=== PATIENT | male | born 1970 | race Hispanic/Latino ===

== ENCOUNTER 2020-02-29 01:26 | Observation (INO) | payer BC, OTHER ==
[2020-02-29 01:58] LABS: Absolute Lymphocytes (CBC) 2.4 K/uL (0.7-4.9); Basophils % 1.4 % (0-1.3); Hematocrit 47.2 % (39.6-49.0); Lymphocytes % 33.5 % (15.3-44.8); MPV 8.2 fL (7.6-11.3); RBC Red Blood Cell Count 5.42 M/uL (4.33-5.43)
[2020-02-29 02:02] LABS: Protime INR 0.87
[2020-02-29 02:21] LABS: ALT/SGPT 46 U/L (12-78); AST/SGOT 19 U/L (15-37); Albumin 3.8 g/dL (3.4-5.0); Alkaline Phosphatase 83 U/L (45-117); BUN Blood Urea Nitrogen 14 mg/dL (7-18); Bicarbonate 31 mmol/L (21-32); Bilirubin Direct < 0.1 mg/dL (0-0.2); Bilirubin Total 0.3 mg/dL (0.2-1.0); Glucose Level 134 mg/dL (74-106); Magnesium 2.1 mg/dL (1.8-2.4); NT PRO-BNP 10 pg/mL (<125); Potassium 3.5 mmol/L (3.5-5.1); Protein, Total 7.1 g/dL (6.4-8.2); Sodium Level 143 mmol/L (136-145); Troponin (Emerg Dept Use Only) < 0.02 ng/mL (0.0-0.045)
--- NOTE | 2020-02-29 03:03 | ER ---
Nurse's Notes [facility] – [place], [place] Name: Ori Lucia Age: 49 yrs Sex: Male : 1970 Arrival Date: 02/29/2020 Time: 01:27 Bed 4 Private MD: Diagnosis: Other chest pain Presentation: 02/28 01:35 Chief complaint: Patient states: Chest pain x 2 days on and off, "feels like something lp1 is sitting on chest". Coronavirus screen: Proceed with normal triage. Ebola Screen: No symptoms or risks identified at this time. Initial Sepsis Screen: Does the patient meet any 2 criteria?. Onset of symptoms was February 29, 2020. 01:35 Method Of Arrival: Ambulatory lp1 01:35 Acuity: YU 3 lp1 01:59 Initial Sepsis Screen: Does the patient have a suspected source of infection? No. ea Patient's initial sepsis screen is negative. Risk Assessment: Do you want to hurt yourself or someone else? Patient reports no desire to harm self or others. Historical: - Allergies: 01:37 No Known Allergies; lp1 - Home Meds: 01:37 None [Active]; lp1 - PMHx: 01:37 None; lp1 - PSHx: 01:37 None; lp1 - Immunization history:: Adult Immunizations up to date. - Social history:: Smoking status: Patient denies any tobacco usage or history of. Screenin:37 Abuse screen: Denies threats or abuse. Denies injuries from another. Nutritional lp1 screening: No deficits noted. Tuberculosis screening: No symptoms or risk factors identified. Fall Risk None identified. Assessment: 01:40 General: Appears uncomfortable, Behavior is calm, cooperative, appropriate for age. ea Pain: Complains of pain in chest. Neuro: Level of Consciousness is awake, alert, obeys commands, Oriented to person, place, time, situation. Cardiovascular: Patient's skin is warm and dry. Respiratory: Airway is patent Respiratory effort is even, unlabored, Respiratory pattern is regular, symmetrical. Derm: Skin is pink, warm \\T\\ dry. 01:40 Pain: Pain radiates to right arm and left arm Pain Quality of pain is described as rr5 aching, tingling, Pain began gradually, 2-3 days ago. Is intermittent. 01:40 Musculoskeletal: Circulation, motion, and sensation intact. Capillary refill < 3 rr5 seconds. 02:48 Reassessment: Patient and/or family updated on plan of care and expected duration. Pain ea level reassessed. Patient is alert, oriented x 3, equal unlabored respirations, skin warm/dry/pink. Patient states feeling better. 03:32 Reassessment: Patient and/or family updated on plan of care and expected duration. Pain ea level reassessed. Patient is alert, oriented x 3, equal unlabored respirations, skin warm/dry/pink. Hospitalist at bedside updating pt on plan of care. 04:01 Reassessment: Patient and/or family updated on plan of care and expected duration. Pain ea level reassessed. Patient is alert, oriented x 3, equal unlabored respirations, skin warm/dry/pink. Vital Signs: 01:38 Weight 113.4 kg (R); Height 5 ft. 11 in. (180.34 cm); Pain 7/10; lp1 01:59 BP 148 / 87; Pulse 55; Resp 18; Temp 98; Pulse Ox 98% on R/A; ea 02:48 BP 140 / 88; Pulse 60; Resp 18; Pulse Ox 98% on R/A; ea 03:00 BP 130 / 61; Pulse 56; Resp 18; Pulse Ox 99% on R/A; ea 04:05 BP 141 / 74; Pulse 60; Resp 18; Pulse Ox 99% on R/A; ea 01:38 Body Mass Index 34.87 (113.40 kg, 180.34 cm) lp1 ED Course: 01:27 Patient arrived in ED. ds1 01:30 Chris Mcdermott MD is Attending Physician. tw4 01:37 Triage completed. lp1 01:37 Arm band placed on. lp1 01:43 EKG done, by ED staff, reviewed by Chris Mcdermott MD. ds4 01:47 XRAY Chest (1 view) In Process Unspecified. EDMS 01:57 Shweta Guerra, NICK is Primary Nurse. ea 01:58 Patient has correct armband on for positive identification. Placed in gown. Bed in low ea position. Call light in reach. campus monitor on. Pulse ox on. NIBP on. 01:59 Patient maintains SpO2 saturation greater than 95% on room air. ea 02:00 Inserted saline lock: 20 gauge in right antecubital area, using aseptic technique. rr5 ,using aseptic technique. inserted by shweta Blood collected. 02:59 Atilio Reynolds is Hospitalizing Provider. tw4 03:31 CT Chest For PE Angio In Process Unspecified. EDMS 04:02 No provider procedures requiring assistance completed. Patient admitted, IV remains in ea place. Administered Medications: No medications were administered Outcome: 03:02 Decision to Hospitalize by Provider. tw4 04:02 Instructed on the need for admit, Demonstrated understanding of instructions. ea 04:40 Admitted to Med/surg accompanied by tech, via wheelchair, room 221, with chart, Report rr5 called to [facility] 04:40 Condition: stable 04:50 Patient left the ED. rr5 Signatures: Dispatcher [employer] EDGA Melissa Henry ds1 Tawanna Rivers, RN RN lp1 Kb Seth ds4 Shweta Guerra RN RN ea Wadley, Terrence, MD MD tw4 Walter Patiño, RN RN rr5
--- NOTE | 2020-02-29 03:03 | EDPHYS ---
Physician Documentation [facility] Name: Ori Lucia Age: 49 yrs Sex: Male : 1970 Arrival Date: 02/29/2020 Time: 01:27 Bed 4 Private MD: ED Physician Chris Mcdermott HPI: 02/28 03:16 This 49 yrs old Male presents to ER via Ambulatory with complaints of Chest tw4 Pain, Tingling in Arms. 03:16 The patient or guardian reports chest pain that is located primarily in the anterior tw4 chest wall. Onset: yesterday. The pain does not radiate. Associated signs and symptoms: The patient has no apparent associated signs or symptoms. The chest pain is described as a heaviness. Duration: The patient or guardian reports a single episode. Modifying factors: The symptoms are alleviated by nothing. the symptoms are aggravated by nothing. Severity of pain: At its worst the pain was moderate in the emergency department the pain is unchanged. Historical: - Allergies: 01:37 No Known Allergies; lp1 - Home Meds: 01:37 None [Active]; lp1 - PMHx: 01:37 None; lp1 - PSHx: 01:37 None; lp1 - Immunization history:: Adult Immunizations up to date. - Social history:: Smoking status: Patient denies any tobacco usage or history of. ROS: 03:16 Constitutional: Negative for fever, chills, and weight loss, Eyes: Negative for injury, tw4 pain, redness, and discharge, Respiratory: Negative for shortness of breath, cough, wheezing, and pleuritic chest pain, Abdomen/GI: Negative for abdominal pain, nausea, vomiting, diarrhea, and constipation, Back: Negative for injury and pain, Skin: Negative for injury, rash, and discoloration, Neuro: Negative for headache, weakness, numbness, tingling, and seizure. 03:16 Cardiovascular: Positive for chest pain, Negative for edema, orthopnea, palpitations, paroxysmal nocturnal dyspnea. Exam: 03:16 Constitutional: This is a well developed, well nourished patient who is awake, alert, tw4 and in no acute distress. Head/Face: Normocephalic, atraumatic. Chest/axilla: Normal chest wall appearance and motion. Nontender with no deformity. No lesions are appreciated. Cardiovascular: Regular rate and rhythm with a normal S1 and S2. No gallops, murmurs, or rubs. Normal PMI, no JVD. No pulse deficits. Respiratory: Lungs have equal breath sounds bilaterally, clear to auscultation and percussion. No rales, rhonchi or wheezes noted. No increased work of breathing, no retractions or nasal flaring. Abdomen/GI: Soft, non-tender, with normal bowel sounds. No distension or tympany. No guarding or rebound. No evidence of tenderness throughout. Back: No spinal tenderness. No costovertebral tenderness. Full range of motion. MS/ Extremity: Pulses equal, no cyanosis. Neurovascular intact. Full, normal range of motion. Neuro: Awake and alert, GCS 15, oriented to person, place, time, and situation. Cranial nerves II-XII grossly intact. Motor strength 5/5 in all extremities. Sensory grossly intact. Cerebellar exam normal. Normal gait. Vital Signs: 01:38 Weight 113.4 kg (R); Height 5 ft. 11 in. (180.34 cm); Pain 7/10; lp1 01:59 BP 148 / 87; Pulse 55; Resp 18; Temp 98; Pulse Ox 98% on R/A; ea 02:48 BP 140 / 88; Pulse 60; Resp 18; Pulse Ox 98% on R/A; ea 03:00 BP 130 / 61; Pulse 56; Resp 18; Pulse Ox 99% on R/A; ea 04:05 BP 141 / 74; Pulse 60; Resp 18; Pulse Ox 99% on R/A; ea 01:38 Body Mass Index 34.87 (113.40 kg, 180.34 cm) lp1 MDM: 01:31 Patient medically screened. tw4 03:27 Differential diagnosis: pulmonary embolus. Data reviewed: vital signs, nurses notes. tw4 Counseling: I had a detailed discussion with the patient and/or guardian regarding: the historical points, exam findings, and any diagnostic results supporting the discharge/admit diagnosis. Special discussion: I discussed with the patient/guardian in detail that at this point there is no indication for admission to the hospital. It is understood, however, that if the symptoms persist or worsen the patient needs to return immediately for re-evaluation. 02/28 01:32 Order name: Basic Metabolic Panel; Complete Time: 02:45 02/28 02:45 Interpretation: Normal except: GLUC 134; GFR 75. 02/28 01:32 Order name: CBC with Diff; Complete Time: 02:45 02/28 02:45 Interpretation: Normal except: BASO% 1.4. 02/28 01:32 Order name: LFT's; Complete Time: 02:45 02/28 02:45 Interpretation: Within normal limits. 02/28 01:32 Order name: Magnesium; Complete Time: 02:45 02/28 02:45 Interpretation: Within normal limits: MG 2.1. 02/28 01:32 Order name: NT PRO-BNP; Complete Time: 02:45 02/28 02:45 Interpretation: Normal except: NT PRO-BNP 10. 02/28 01:32 Order name: PT-INR; Complete Time: 02:45 02/28 01:32 Order name: Troponin (emerg Dept Use Only); Complete Time: 02:45 02/28 01:32 Order name: XRAY Chest (1 view) 02/28 01:32 Order name: EKG; Complete Time: 01:33 02/28 01:32 Order name: Cardiac monitoring; Complete Time: 01:42 02/28 01:32 Order name: EKG - Nurse/Tech; Complete Time: 01:42 02/28 01:32 Order name: IV Saline Lock; Complete Time: 02:00 02/28 01:32 Order name: Labs collected and sent; Complete Time: 02:00 02/28 02:58 Order name: CT Chest For PE Angio 02/28 01:32 Order name: O2 Per Protocol; Complete Time: 01:43 02/28 01:32 Order name: O2 Sat Monitoring; Complete Time: 01:43 EC:16 Rate is 58 beats/min. Rhythm is regular, Sinus bradycardia. QRS [place] is Normal. [place] tw4 interval is normal. QRS interval is normal. QT interval is normal. No Q waves. No ST changes noted. Interpreted by me. Reviewed by me. Administered Medications: No medications were administered Disposition: 02/29/20 03:02 Hospitalization ordered by Atilio Reynolds for Observation. Preliminary diagnosis is Other chest pain. - Bed requested for Telemetry/MedSurg (observation). - Status is Observation. rr5 - Condition is Stable. - Problem is new. - Symptoms have improved. Signatures: Dispatcher [employer] EDMS Tawanna Rivers, RN RN lp1 Delmi Dunlap RN RN cg Chris Mcdermott MD MD tw4 Walter Patiño RN RN rr5 Corrections: (The following items were deleted from the chart) 04:23 03:02 Hospitalization Ordered by Atilio Reynolds for Observation. Preliminary diagnosis cg is Other chest pain. Bed requested for Telemetry/MedSurg (observation). Status is Observation. Condition is Stable. Problem is new. Symptoms have improved. tw4 04:50 04:23 02/29/2020 03:02 Hospitalization Ordered by Atilio Reynolds for Observation. rr5 Preliminary diagnosis is Other chest pain. Bed requested for Telemetry/MedSurg (observation). Status is Observation. Condition is Stable. Problem is new. Symptoms have improved. cg
--- NOTE | 2020-02-29 03:49 | P.HP ---
Certification for Inpatient Patient admitted to: Observation With expected LOS: <2 Midnights Practitioner: I am a practitioner with admitting privileges, knowledge of patient current condition, hospital course, and medical plan of care. Services: Services provided to patient in accordance with Admission requirements found in Title 42 Section 412.3 of the Code of Federal Regulations Patient History Date of Service: 02/29/20 Reason for admission: Chest pain History of Present Illness: 49-year-old gentleman with no known past medical history presented emergency department with a complaint of chest pain of 2 days duration, intermittent in nature, maximum intensity 5/10, no known relieving or aggravating factors, not related to exertion, no diaphoresis or nausea or palpitation. Patient described the pain as tightness, like somebody sitting on his chest. Initial EKG demonstrates sinus bradycardia, possible AV dissociation, nonspecific ST-T changes. Chest x-ray unremarkable and shows no acute disease. CTA thorax result is pending. Initial troponin was normal. Patient is placed under observation for chest pain rule out. - Past Medical/Surgical History -: None -: None - Family History Mother -: Other (see notes) (Afib) - Social History Smoking Status: Never smoker Alcohol use: Yes CD- Drugs: No Place of Residence: Home Review of Systems Other: Except as documented, all other systems reviewed and negative. Physical Examination - Physical Exam General: Alert, In no apparent distress, Oriented x3 HEENT: PERRLA, Mucous membr. moist/pink, Sclerae nonicteric Neck: Supple, JVD not distended Respiratory: Clear to auscultation bilaterally, Normal air movement Cardiovascular: No edema, Normal pulses, Regular rate/rhythm, Normal S1 S2 Capillary refill: <2 Seconds Gastrointestinal: Normal bowel sounds, Soft and benign, No tenderness Musculoskeletal: No swelling, No erythema Integumentary: Other (Generalized hypopigmented lesions-vitiligo.) Neurological: Normal speech, Normal strength at 5/5 x4 extr - Studies Laboratory Data (last 24 hrs) 02/29/20 01:43: PT 10.3, INR 0.87 02/29/20 01:43: WBC 7.1, Hgb 15.9, Hct 47.2, Plt Count 260 02/29/20 01:43: Sodium 143, Potassium 3.5, BUN 14, Creatinine 1.04, Glucose 134 H, Magnesium 2.1, Total Bilirubin 0.3, AST 19, ALT 46, Alkaline Phosphatase 83 Assessment and Plan - Problems (Diagnosis) (1) Chest pain Current Visit: Yes Status: Acute (2) Sinus bradycardia Current Visit: Yes Status: Acute (3) Abnormal EKG Current Visit: Yes Status: Acute - Plan Place under observation Trend troponin Start baby aspirin Cardiology consult to review EKG and patient's symptoms Check lipid profile Screened for diabetes. - Advance Directives Does patient have a Living Will: No Does patient have a Durable POA for Healthcare: No
[2020-02-29 05:01] VITALS: O2SAT 99
[2020-02-29 05:32] VITALS: BMI 33.4
[2020-02-29 06:11] LABS: HDL Cholesterol 39 mg/dL (40-60); LDL Cholesterol, Calculated 72 (<130); Troponin I < 0.02 ng/mL (0.0-0.045)
--- NOTE | 2020-02-29 07:52 | P.DS ---
Admission Date: 02/29/20 Discharge Date: 02/29/20 Disposition: ROUTINE DISCHARGE Discharge Condition: FAIR Reason for Admission: Chest pain - Problems (1) Chest pain Status: Acute (2) Sinus bradycardia Status: Acute (3) Abnormal EKG Status: Acute Brief History of Present Illness: 49-year-old gentleman with no known past medical history presented emergency department with a complaint of chest pain of 2 days duration, intermittent in nature, maximum intensity 5/10, no known relieving or aggravating factors, not related to exertion, no diaphoresis or nausea or palpitation. Patient described the pain as tightness, like somebody sitting on his chest. Initial EKG demonstrates sinus bradycardia, possible AV dissociation, nonspecific ST-T changes. Chest x-ray unremarkable and shows no acute disease. CTA thorax result is pending. Initial troponin was normal. Patient is placed under obser vation for chest pain rule out. Hospital Course: Patient placed under observation on the medical floor. Troponin trended came back negative. He was evaluated by cardiology regarding his abnormal EKG findings. Cardiology evaluated patient and recommended outpatient stress test. ACS has been ruled out Patient is deemed clinically stable for discharge. Vital Signs/Physical Exam: Temp Pulse Resp BP Pulse Ox 97.3 F 54 16 165/79 H 98 02/29/20 04:23 02/29/20 04:23 02/29/20 04:23 02/29/20 04:23 02/29/20 04:23 General: Alert, In no apparent distress, Oriented x3 Neck: Supple, JVD not distended Respiratory: Clear to auscultation bilaterally, Normal air movement Cardiovascular: No edema, Normal pulses, Regular rate/rhythm, Normal S1 S2 Gastrointestinal: Normal bowel sounds, Soft and benign, No tenderness Musculoskeletal: No swelling Integumentary: No rashes Laboratory Data at Discharge: WBC 7.1 K/uL (4.3-10.9) 02/29/20 01:43 Hgb 15.9 g/dL (13.6-17.9) 02/29/20 01:43 Hct 47.2 % (39.6-49.0) 02/29/20 01:43 Plt Count 260 K/uL (152-406) 02/29/20 01:43 PT 10.3 SECONDS (9.5-12.5) 02/29/20 01:43 INR 0.87 02/29/20 01:43 Sodium 143 mmol/L (136-145) 02/29/20 01:43 Potassium 3.5 mmol/L (3.5-5.1) 02/29/20 01:43 BUN 14 mg/dL (7-18) 02/29/20 01:43 Creatinine 1.04 mg/dL (0.55-1.3) 02/29/20 01:43 Glucose 134 mg/dL (74-106) H 02/29/20 01:43 Magnesium 2.1 mg/dL (1.8-2.4) 02/29/20 01:43 Total Bilirubin 0.3 mg/dL (0.2-1.0) 02/29/20 01:43 AST 19 U/L (15-37) 02/29/20 01:43 ALT 46 U/L (12-78) 02/29/20 01:43 Alkaline Phosphatase 83 U/L (45-117) 02/29/20 01:43 Troponin I < 0.02 ng/mL (0.0-0.045) 02/29/20 05:33 Triglycerides 177 mg/dL (<150) H 02/29/20 05:33 Cholesterol 146 mg/dL (<200) 02/29/20 05:33 HDL Cholesterol 39 mg/dL (40-60) L 02/29/20 05:33 Cholesterol/HDL Ratio 3.74 02/29/20 05:33 Home Medications: Aspirin [Aspirin EC 81 MG] 81 mg PO DAILY #30 tablet. 02/29/20 New Medications: Aspirin [Aspirin EC 81 MG] 81 mg PO DAILY #30 tablet. Diet: AHA Activity: Ad jona Followup: Eduardo Norris MD [ACTIVE - CAN ADMIT] -
--- NOTE | 2020-02-29 08:58 | RAD REPORT ---
EXAM DESCRIPTION: RAD - Chest Single View - 02/29/2020 1:47 am CLINICAL HISTORY: CHEST PAIN COMPARISON: None TECHNIQUE: AP portable chest image was obtained 02/29/2020 1:47 am . FINDINGS: Lungs are clear. Heart and vasculature are normal. No measurable pleural effusion and no p neumothorax. No acute bony abnormality seen. No acute aortic findings suspected. IMPRESSION: No acute cardiopulmonary process.
[2020-02-29] MEDS ORDERED: ASPIRIN EC 81 MG TAB PO SCH (09:00)
[2020-02-29] MEDS ORDERED: ENOXAPARIN 40 MG/0.4 ML SQ SCH (09:00)
[2020-02-29 14:45] VITALS: BP 147/78; TEMP 97.7
--- NOTE | 2020-03-01 10:43 | RAD REPORT ---
EXAM DESCRIPTION: CT - Chest For Pe Angio - 02/29/2020 5:38 am CLINICAL HISTORY: CHEST PAIN COMPARISON: None. TECHNIQUE: CT CHEST ANGIOGRAPHY WITH IV CONTRAST on 02/29/2020 2:58 AM CDT. MIPS reconstructions were generated. This exam was performed according to our departmental dose-optimization program, which includes autom ated exposure control, adjustment of the mA and/or kV according to patient size and/or use of iterati ve reconstruction technique. MIP images were generated. FINDINGS: Thoracic aorta is normal in course and caliber without aneurysm or dissection. Pulmonary a rteries are adequately opacified without acute or chronic filling defects. The heart is mildly enlarged. There is no pericardial effusion. Intrathoracic lymph nodes are not enl arged. There is no pleural effusion, pleural thickening or pneumothorax. Central airways are patent. Lungs a re clear with no consolidation, mass or interstitial lung disease. There are no acute abnormalities within the limited images of the upper abdomen. There are no acute osseous findings. No suspicious bony lesions. IMPRESSION: No aortic dissection or aneurysm. No pulmonary embolus. No pneumonia. Electronically signed by: Michel Maharaj MD 02/29/2020 3:37 AM CDT Due to temporary technical issues with the PACS/Fluency reporting system, reports are being signed by the in house radiologist without review as a courtesy to ensure prompt reporting. The interpreting r adiologist is fully responsible for the content of the report.
--- NOTE | 2020-03-01 16:40 | CON ---
Date of Consultation: 02/29/2020 Chief Complaint: Chest pain. History Of Present Illness: This is a 49-year-old male with no medical history, [facility], pressure like, 6/10, radiates to his neck. He claims that was not relat ed to exertion; however, he is having chest pain with exertion as when he has to climb stairs. After the second flight of stairs, he will get some chest pain that makes him rest. Denies having any jinny sea or vomiting. No diaphoresis. No other relieving or aggravating factors. No other medical histo ry. Past Medical History: None. Medications: None. Allergies: NO KNOWN DRUG ALLERGIES. Social History: Does not smoke or drink. Does not use any drugs. Family History: . Review of Systems: All systems were reviewed and were negative except for mentioned in HPI. Physical Examination: Vital Signs: Temperature is 97.3, pulse 56, breathing at 16, blood pressure is 147/78, saturating 97 % on room air. General: Pleasant, middle-aged male, in no distress. Head and Neck: Pupils are equal, reactive to light. Intact eye movements. No JVD. No cervical lym phadenopathy. Neck is supple. Thyroid is not enlarged. Lungs: Clear to auscultation bilaterally. No rhonchi, rales, or crackles. No accessory muscle use. Heart: Regular rate and rhythm. No extra sounds. Abdomen: Soft, nontender. Bowel sounds positive. No organomegaly. No masses or hernia. No rigidi ty or rebound. Extremities: No edema, clubbing, or cyanosis. Intact pulses. Skin: No rashes. Neurologic: Alert, awake, and oriented x3. No focal deficits appreciated. Lymph Nodes: No cervical or axillary lymphadenopathy. Investigations: CTA of the lungs is negative. The troponins are negative x3. BUN is 15, creatinine 1.04. EKG without acute specific abnormalities. Assessment/plan: 1.Unstable angina with chest pain. He is chest pain free now. However, chest pain has become more frequent lately. Gave the patient option of doing invasive strategy with coronary angiogram or to st arting with noninvasive and starting a stress test. After explaining to him benefits and risks of nehemiah th paths, he chose to go with a noninvasive route first. Patient is hemodynamically stable with no s ignificant risks for coronary artery disease. If he manages to be chest pain free, he can be release d and will follow up with me in the office during this coming weekend to arrange for an exercise stre ss echo and echocardiogram. Meanwhile if any chest pain, to return back to emergency room. He agree s to the plan. I started him on aspirin 81 mg and high-dose statin. I appreciate the courtesy of this consultation. /KRISTIAN Voice ID: [id number] Report ID: [id number]
== END 2020-02-29 15:25 | disposition home or self-care (01) ==
LOC: ER 01:26 → ERHOLD 04:06 → 2ND 04:39
PROVIDERS: ADMIT Internal Medicine; ATTEND Internal Medicine
DX: I20.0 Unstable angina (principal); R07.89 Other chest pain; R00.1 Bradycardia, unspecified; R94.31 Abnormal electrocardiogram [ECG] [EKG]; Z11.59 Encounter for screening for other viral diseases
CPT/HCPCS: 93005; 85025; 80048; 36415; 83735; 85610; 80061; 80076; 84484 ×3; 83880; 71275; 71045; 99285; U0002; Q9967; J1650; G0378 ×2